=== PATIENT | male | born 1980 | race American Indian/Alaskan Native ===

== ENCOUNTER 2017-07-14 05:07 | Emergency (ER) | payer MEDICAID ==
[2017-07-14] MEDS ORDERED: NACL 0.9% 1000 ML 1,000 ML ONE (05:51)
[2017-07-14 06:14] LABS: Bilirubin,Urine NEG (Negative); Blood,Urine NEG (Negative); Ketones,Urine TR mg/dL (Negative); Leukocyte Esterase,Urine NEG (Negative); Nitrite,Urine NEG (Negative); Protein,Urine <15 mg/dL mg/dL (Negative); Urobilinogen,Urine < 2.0 mg/dL (<2.0)
[2017-07-14] MEDS ORDERED: NACL 0.9% 1000 ML 1,000 ML IV ONE ×4 (06:25→08:22)
[2017-07-14 06:46] LABS: Basophils % (Auto) 0.2 % (0.0-1.8); Eosinophils % (Auto) 0.3 % (0.0-4.3); Hematocrit 37.5 % (35.5-45.6); Hemoglobin 12.5 gm/dl (11.8-15.2); Mean Corpuscular HGB Conc 33 % (32-34); Mean Corpuscular Hemoglobin 27 pg (28-32); Mean Corpuscular Volume 81 fl (84-94); Platelet Count 194 K/mm3 (140-440); Red Blood Count 4.61 M/mm3 (3.65-5.03); Red Cell Distribution Width 14.6 % (13.2-15.2); White Blood Count 10.8 K/mm3 (4.5-11.0)
[2017-07-14 06:58] LABS: Anion Gap 20 mmol/L; BUN/Creatinine Ratio 16.25; Blood Urea Nitrogen 13 mg/dL (9-20); Calcium 8.3 mg/dL (8.4-10.2); Carbon Dioxide 20 mmol/L (22-30); Chloride 91.1 mmol/L (98-107); Potassium 4.1 mmol/L (3.6-5.0); Sodium 127 mmol/L (137-145)
[2017-07-14 07:10] LABS: Glucose 618 mg/dL (75-100)
--- NOTE | 2017-07-14 07:12 | Emergency Department Report ---
ED General Adult HPI - General Chief complaint: Hyperglycemia Stated complaint: LIGHTHEADED Time Seen by Provider: 07/14/17 06:15 Source: patient, EMS Mode of arrival: Ambulatory Limitations: No Limitations - History of Present Illness Initial comments: 36 yo with a past medical history of hypertension presents to the hospital with complaints of feeling dizzy, lightheaded, polyuria, and increased thirst for several days. Accu-Chek was 500 upon EMS arrival. No previous history of diabetes. Patient denies nausea, vomiting, chest pain, shortness of breath, abdominal pain, dysuria, fever, or diarrhea. Patient is pain free. - Related Data Previous Rx's Medication Instructions Recorded Last Taken Type Metformin HCl [Glucophage] 500 mg PO BID #60 tablet 07/14/17 Unknown Rx Allergies Allergy/AdvReac Type Severity Reaction Status Date / Time pollen extracts Allergy Swelling Verified 07/14/17 05:24 shellfish derived Allergy Hives Verified 07/14/17 05:24 ED Review of Systems ROS: Stated complaint: LIGHTHEADED Other details as noted in HPI Comment: All other systems reviewed and negative Other: Constitutional: No fevers chills Eyes: No eye pain visual changes ENT: No ear pain or throat pain Neck: Denies pain Respiratory: Denies cough wheezing shortness of breath Cardiovascular: Denies chest pain, palpitations, syncope Endocrine: Per HPI GI: Denies abdominal pain, nausea, vomiting, diarrhea : Denies dysuria Musculoskeletal: Denies back pain Skin: Denies rash, lesions, erythema Neurologic: Denies headache, numbness, weakness Psychiatric: Denies suicidal ideation, hallucinations Hematological/lymphatic: Denies easy bruising, lymphadenopathy ED Past Medical Hx - Past Medical History Previous Medical History?: Yes Hx Hypertension: Yes - Surgical History Past Surgical History?: No - Social History Smoking Status: Current Some Day Smoker Substance Use Type: None - Medications Home Medications: Home Medications Medication Instructions Recorded Confirmed Last Taken Type Metformin HCl [Glucophage] 500 mg PO BID #60 tablet 07/14/17 Unknown Rx ED Physical Exam - General Limitations: No Limitations - Other Other exam information: General: No limitations, patient is alert in no acute distress Head exam: Atraumatic, normocephalic Eyes exam: Normal appearance, pupils equal reactive to light ENT: Moist mucous membrane, normal oropharynx Neck exam: Normal inspection, full range of motion, no meningismus nontender Respiratory exam: Clear to auscultation bilateral, no wheezes, rales, crackles Cardiovascular: Normal rate and rhythm, normal heart sounds Abdomen: Soft, nondistended, and nontender, with normal bowel sounds, no rebound, or guarding Extremity: Full range of motion normal inspection no deformity Back: Normal Inspection, full range of motion, no tenderness Neurologic: Alert, oriented x3, cranial nerves intact, no motor or sensory deficit Psychiatric: normal affect, normal mood Skin: Warm, dry, intact ED Course Vital Signs 07/14/17 07/14/17 07/14/17 05:24 05:30 05:45 Temperature 98.8 F Pulse Rate 116 H 110 H Respiratory 18 11 L Rate Blood Pressure 127/86 127/86 Blood Pressure [Left] O2 Sat by Pulse 98 99 99 Oximetry 07/14/17 07/14/17 07/14/17 06:00 06:15 06:30 Temperature Pulse Rate 108 H 104 H 102 H Respiratory 15 15 14 Rate Blood Pressure 126/85 126/85 129/83 Blood Pressure [Left] O2 Sat by Pulse 98 98 94 Oximetry 07/14/17 07/14/17 07/14/17 06:45 07:01 07:47 Temperature 98.4 F Pulse Rate 100 H 90 Respiratory 15 20 Rate Blood Pressure 129/83 129/83 Blood Pressure 122/74 [Left] O2 Sat by Pulse 98 97 98 Oximetry 07/14/17 09:34 Temperature Pulse Rate 94 H Respiratory 20 Rate Blood Pressure Blood Pressure 130/83 [Left] O2 Sat by Pulse 98 Oximetry - Reevaluation(s) Reevaluation #1: 07/14/17 07:12 Normal saline 3 L and regular insulin initiated ED Medical Decision Making - Lab Data Result diagrams: 07/14/17 06:16 07/14/17 06:16 Lab Results 07/14/17 07/14/17 07/14/17 Range/Units 05:40 05:45 06:16 WBC 10.8 (4.5-11.0) K/mm3 RBC 4.61 (3.65-5.03) M/mm3 Hgb 12.5 (11.8-15.2) gm/dl Hct 37.5 (35.5-45.6) % MCV 81 L (84-94) fl MCH 27 L (28-32) pg MCHC 33 (32-34) % RDW 14.6 (13.2-15.2) % Plt Count 194 (140-440) K/mm3 Lymph % (Auto) 10.8 L (13.4-35.0) % Bland % (Auto) 6.9 (0.0-7.3) % Eos % (Auto) 0.3 (0.0-4.3) % Baso % (Auto) 0.2 (0.0-1.8) % Lymph # 1.2 (1.2-5.4) K/mm3 Bland # 0.7 (0.0-0.8) K/mm3 Eos # 0.0 (0.0-0.4) K/mm3 Baso # 0.0 (0.0-0.1) K/mm3 Seg Neutrophils % 81.8 H (40.0-70.0) % Seg Neutrophils # 8.9 H (1.8-7.7) K/mm3 VBG pH (7.320-7.420) Sodium (137-145) mmol/L Potassium (3.6-5.0) mmol/L Chloride (98-107) mmol/L Carbon Dioxide (22-30) mmol/L Anion Gap mmol/L BUN (9-20) mg/dL Creatinine (0.8-1.5) mg/dL Estimated GFR ml/min BUN/Creatinine Ratio % Glucose (75-100) mg/dL POC Glucose > 500 H (70-105) Calcium (8.4-10.2) mg/dL Urine Color Straw (Yellow) Urine Turbidity Clear (Clear) Urine pH 6.0 (5.0-7.0) Ur Specific Byers 1.028 (1.003-1.030) Urine Protein <15 mg/dl (Negative) mg/dL Urine Glucose (UA) >=500 (Negative) mg/dL Urine Ketones Tr (Negative) mg/dL Urine Blood Neg (Negative) Urine Nitrite Neg (Negative) Urine Bilirubin Neg (Negative) Urine Urobilinogen < 2.0 (<2.0) mg/dL Ur Leukocyte Esterase Neg (Negative) Urine WBC (Auto) 1.0 (0.0-6.0) /HPF Urine RBC (Auto) 1.0 (0.0-6.0) /HPF 07/14/17 07/14/17 07/14/17 Range/Units 06:16 06:57 08:24 WBC (4.5-11.0) K/mm3 RBC (3.65-5.03) M/mm3 Hgb (11.8-15.2) gm/dl Hct (35.5-45.6) % MCV (84-94) fl MCH (28-32) pg MCHC (32-34) % RDW (13.2-15.2) % Plt Count (140-440) K/mm3 Lymph % (Auto) (13.4-35.0) % Bland % (Auto) (0.0-7.3) % Eos % (Auto) (0.0-4.3) % Baso % (Auto) (0.0-1.8) % Lymph # (1.2-5.4) K/mm3 Bland # (0.0-0.8) K/mm3 Eos # (0.0-0.4) K/mm3 Baso # (0.0-0.1) K/mm3 Seg Neutrophils % (40.0-70.0) % Seg Neutrophils # (1.8-7.7) K/mm3 VBG pH 7.350 (7.320-7.420) Sodium 127 L (137-145) mmol/L Potassium 4.1 (3.6-5.0) mmol/L Chloride 91.1 L (98-107) mmol/L Carbon Dioxide 20 L (22-30) mmol/L Anion Gap 20 mmol/L BUN 13 (9-20) mg/dL Creatinine 0.8 (0.8-1.5) mg/dL Estimated GFR > 60 ml/min BUN/Creatinine Ratio 16.25 % Glucose 618 H* (75-100) mg/dL POC Glucose 392 H (70-105) Calcium 8.3 L (8.4-10.2) mg/dL Urine Color (Yellow) Urine Turbidity (Clear) Urine pH (5.0-7.0) Ur Specific Byers (1.003-1.030) Urine Protein (Negative) mg/dL Urine Glucose (UA) (Negative) mg/dL Urine Ketones (Negative) mg/dL Urine Blood (Negative) Urine Nitrite (Negative) Urine Bilirubin (Negative) Urine Urobilinogen (<2.0) mg/dL Ur Leukocyte Esterase (Negative) Urine WBC (Auto) (0.0-6.0) /HPF Urine RBC (Auto) (0.0-6.0) /HPF 07/14/17 Range/Units 09:34 WBC (4.5-11.0) K/mm3 RBC (3.65-5.03) M/mm3 Hgb (11.8-15.2) gm/dl Hct (35.5-45.6) % MCV (84-94) fl MCH (28-32) pg MCHC (32-34) % RDW (13.2-15.2) % Plt Count (140-440) K/mm3 Lymph % (Auto) (13.4-35.0) % Bland % (Auto) (0.0-7.3) % Eos % (Auto) (0.0-4.3) % Baso % (Auto) (0.0-1.8) % Lymph # (1.2-5.4) K/mm3 Bland # (0.0-0.8) K/mm3 Eos # (0.0-0.4) K/mm3 Baso # (0.0-0.1) K/mm3 Seg Neutrophils % (40.0-70.0) % Seg Neutrophils # (1.8-7.7) K/mm3 VBG pH (7.320-7.420) Sodium (137-145) mmol/L Potassium (3.6-5.0) mmol/L Chloride (98-107) mmol/L Carbon Dioxide (22-30) mmol/L Anion Gap mmol/L BUN (9-20) mg/dL Creatinine (0.8-1.5) mg/dL Estimated GFR ml/min BUN/Creatinine Ratio % Glucose (75-100) mg/dL POC Glucose 223 H (70-105) Calcium (8.4-10.2) mg/dL Urine Color (Yellow) Urine Turbidity (Clear) Urine pH (5.0-7.0) Ur Specific Byers (1.003-1.030) Urine Protein (Negative) mg/dL Urine Glucose (UA) (Negative) mg/dL Urine Ketones (Negative) mg/dL Urine Blood (Negative) Urine Nitrite (Negative) Urine Bilirubin (Negative) Urine Urobilinogen (<2.0) mg/dL Ur Leukocyte Esterase (Negative) Urine WBC (Auto) (0.0-6.0) /HPF Urine RBC (Auto) (0.0-6.0) /HPF - Medical Decision Making Patient's glucose improved after insulin and normal saline. Patient reports feeling better. Outpatient follow-up will be encouraged. Metformin will be initiated - Differential Diagnosis DKA, HHNK, new onset dm Critical Care Time: No Critical care attestation.: If time is entered above; I have spent that time in minutes in the direct care of this critically ill patient, excluding procedure time. ED Disposition Clinical Impression: Diabetes mellitus, new onset Disposition: DC-01 TO HOME OR SELFCARE Is pt being admited?: No Does the pt Need Aspirin: No Condition: Stable Instructions: Diabetes Mellitus Type 2 in Adults (ED) Additional Instructions: Follow up with the primary care doctor for further management of your diabetes. Please start metformin 500 mg twice a day. Start your first dose tonight. If this medication is not adequate to control your glucose you may need additional medication or an increased dose. Please return if symptoms worsen as indicated by discharge instruction. Prescriptions: Metformin HCl [Glucophage] 500 mg PO BID #60 tablet Referrals: JORDY FRAGOSO MD [Referring] - 2-3 Days Time of Disposition: 10:20
[2017-07-14 10:57] VITALS: BP 117/67
== END 2017-07-14 10:58 | disposition home or self-care (01) ==
LOC: ED 05:07
DX: E11.65 Type 2 diabetes mellitus with hyperglycemia (principal); I10 Essential (primary) hypertension; F17.210 Nicotine dependence, cigarettes, uncomplicated; Z88.8 Allergy status to other drugs, medicaments and biological substances; Z91.013 Allergy to seafood
CPT/HCPCS: 36415; 80048; 81001; 82805; 82962; 85025; 96361; 96374; 96376; 99284; J7030; J1815